=== PATIENT | female | born 1935 | race Caucasian/White ===

== ENCOUNTER 2017-06-06 18:04 | Observation (INO) ==
[~2017-06-06 18:04] MED LIST: Acetaminophen 325 MG TABLET PO PRN
--- NOTE | 2017-06-06 18:12 | Emergency Department Note ---
Disposition Clinical Impression: Gait disturbance Left wrist fracture Qualifiers: Encounter type: initial encounter Fracture type: closed Qualified Code(s): S62.102A - Fracture of unspecified carpal bone, left wrist, initial encounter for closed fracture Dementia Qualifiers: Dementia type: unspecified type Dementia behavioral disturbance: without behavioral disturbance Qualified Code(s): F03.90 - Unspecified dementia without behavioral disturbance Disposition: Admitted As Inpatient Condition: Fair Time of Disposition: 19:45 Fall HPI - General Stated Complaint: Fall Time Seen by Provider: 06/06/17 18:08 Source: patient, EMS Mode of arrival: EMS Limitations: no limitations Nursing Notes Reviewed: Yes Vital Signs Reviewed: Yes - History of Present Illness HPI Narrative: 82-year-old who was walking and fell suffering an injury to her left wrist and left knee. She also struck her head has neck pain. Denies loss of consciousness. Is awake and alert at this point in time. 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 Fall From: standing Fall Witnessed: yes Place Fall Occurred: home Loss of Consciousness: none Prolonged Down Time?: no Symptoms Prior to Fall: none Context: tripped/slipped Location of injury: head, neck Location of injury - extremities: Left: forearm, knee Severity: moderate Quality: aching Associated symptoms (after fall): Reports: headache, neck pain - Related Data Previous Rx's Medication Instructions Recorded Nitrofurantoin (BID) [Macrobid] 100 mg PO BID #20 capsule 07/16/16 Allergies Allergy/AdvReac Type Severity Reaction Status Date / Time No Known Allergies Allergy Verified 07/16/16 20:14 All systems ED: reviewed and negative except as stated. Constitutional: Denies: fever, chills, weakness, weight change Eyes: Denies: eye pain, eye discharge, vision change ENT ED: Denies: ear pain, throat pain, dental pain, hearing loss, epistaxis, congestion, dysphagia Cardiovascular: Denies: chest pain, palpitations, dyspnea on exertion, edema, syncope Respiratory: Denies: cough, dyspnea, wheezes, hemoptysis, stridor Gastrointestinal: Denies: abdominal pain, nausea, vomiting, diarrhea, constipation, hematemesis, melena, hematochezia Genitourinary: Denies: dysuria, frequency, hematuria, discharge Musculoskeletal: Reports: neck pain, arthralgia. Denies: back pain, myalgia Integumentary: Denies: rash, abrasion, lesions Neurological: Reports: headache. Denies: weakness, numbness, paresthesias, confusion, abnormal gait, vertigo Psychiatric: Denies: anxiety, depression, suicidal thoughts, homicidal thoughts , auditory hallucinations, visual hallucinations Endocrine: Denies: fatigue Hematological/Lymphatic: Denies: easy bleeding, easy bruising Allergic/Immunologic: Denies: facial swelling, urticaria Fall PMH - Past Medical History Medical history: Reports: diabetes, renal disease Psychiatric history: Reports: no psych history - Social History Smoking Status: Never smoker Alcohol use: Reports: none Drug use: Reports: none Physical Exam - General Limitations: no limitations General appearance: alert, in no apparent distress - Head Head exam: atraumatic, normocephalic, normal inspection - Eye Eye exam: Present: normal appearance, PERRL, EOMI - ENT ENT exam: normal exam, normal oropharynx, mucous membranes moist - Neck Neck exam: Present: tenderness (Paravertebral) - Chest Chest inspection: Present: normal inspection, symmetric chest wall rise - Respiratory Respiratory exam: Present: normal lung sounds bilaterally - Cardiovascular Cardiovascular exam: Present: regular rate, normal rhythm, normal heart sounds - Abdominal Exam Abdominal exam: Present: soft, Non-Tender. Absent: tenderness, distention, guarding, rebound, rigidity - Expanded Upper Extremity Exam Forearm/Wrist exam: Present: tenderness, swelling - Expanded Lower Extremity Exam Knee exam: Present: tenderness Neurovascular/Tendon exam: Absent: motor deficit, sensory deficit, tendon deficit Gait: observed and normal - Back Exam Back exam: Present: normal inspection, full ROM. Absent: tenderness - Neurological Exam Neurological exam: Present: alert, oriented X3, other (Livingston Coma Scale is 15) . Absent: motor sensory deficit - Psychiatric Psychiatric exam: Present: normal affect, normal mood - Skin Skin exam: Present: warm, dry, intact, normal color Course - Reevaluation(s) Reevaluation #1: 82-year-old female who fell because of tripping who has a left wrist fracture. Patient does have dementia walks with a walker is not able to ambulate broken wrist likely require ECF placement. Time: 19:44 - Consultations Consultation #1: Discussed with Dr. Arellano, will see in consult Time: 19:44 Consultation #2: Discussed with , admit. Time: 19:44 Vital Signs Temperature 98.1 F 06/06/17 18:25 Pulse Rate 71 06/06/17 18:25 Respiratory Rate 16 06/06/17 18:25 Blood Pressure 151/98 06/06/17 18:25 O2 Sat by Pulse Oximetry 96 06/06/17 18:25 Temperature 98.1 F 06/06/17 18:25 Pulse Rate 71 06/06/17 18:25 Respiratory Rate 16 06/06/17 18:25 Blood Pressure 151/98 06/06/17 18:25 O2 Sat by Pulse Oximetry 96 06/06/17 18:25 Oxygen Delivery Oxygen Delivery Nasal Cannula
[2017-06-06 19:49] LABS: Bilirubin,Urine Negative (Negative); Blood,Urine Small (Negative); Clarity,Urine Clear (Clear); Color,Urine Yellow (Yellow); Glucose,Urine (UA) 500 mg/dL (Normal); Ketones,Urine Negative (Negative); Leukocyte Esterase,Urine Negative (Negative); Nitrite,Urine Negative (Negative); PH,Urine 6.5 pH Units (5.0-8.0); Protein,Urine 100 mg/dL (Neg-Trace); Specific Gravity,Urine 1.019 (1.010-1.025); Urobilinogen,Urine Normal (Normal)
[2017-06-06 19:53] LABS: Bacteria,Urine None Seen per hpf (None-Few); Hyaline Casts,Urine None Seen per lpf (None-Few); RBC,Urine 0-3 per hpf (0-3); Squamous Epithelial Cell,Urine Few per lpf (None-Few); WBC,Urine 0-3 per hpf (0-3)
[2017-06-06 20:37] LABS: Basophils % 0.4 %; Eosinophils # 0.2 K/mcL (0.0-0.6); Eosinophils % 3.9 %; Hematocrit 39.8 % (35.3-44.9); Hemoglobin 12.7 g/dL (11.5-15.4); Immature Granulocytes % 0.2 % (0-4); Lymphocytes % 19.9 %; Mean Corpuscular HGB Conc 31.9 g/dL (31.6-35.5); Mean Corpuscular Hemoglobin 32.7 pg (28.0-33.3); Mean Corpuscular Volume 102.6 fL (83.0-100.0); Mean Platelet Volume 10.2 fL (9.4-12.4); Monocytes # 0.3 K/mcL (0.0-1.3); Monocytes % 5.5 %; Neutrophils # 3.6 K/mcL (1.6-8.9); Platelet Count 164 K/mcL (140-400); Red Blood Count 3.88 M/mcL (3.82-4.97); Red Cell Distribution Width 13.7 % (11.5-14.5); Segmented Neutrophils % 70.1 %
[2017-06-06 20:45] LABS: INR 1.2; Prothrombin Time 12.8 Seconds (9.4-12.1)
[2017-06-06 20:52] LABS: Calcium 9.2 mg/dL (8.6-10.3); Potassium 4.9 mEq/L (3.5-5.1)
[2017-06-06] MEDS ORDERED: Naloxone 0.4 MG/ML INJ IVP PRN (23:45)
[2017-06-07] MEDS ORDERED: D5% in Water 1,000 ML IVC PRN (02:42)
[2017-06-07] MEDS ORDERED: Dextrose Gel 15 GM/37.5 ML TUBE PO PRN ×2 (02:42)
[2017-06-07] MEDS ORDERED: *HR* Dextrose 50 % in Water (Syg) 50 ML SYRINGE IVP PRN (02:42)
--- NOTE | 2017-06-07 02:48 | Internal Med History&Physical ---
Date of Encounter: 06/06/17 Time of Encounter: 20:00 Internal Medicine - H&P: HPI Chief complaint: Fall and left wrist pain Admitted From: Home Plans for Post Hospital Care: Transfer Detention Facility History of present illness: Ms. Macias is a 82 year old female present to ER for fall and left wrist pain. past medical history is significant for diabetes, and the hypertension. Patient is said she has a mechanical fall at home today. Patient stated her back of her head with hit but not severe. Patient complaint left wrist pain. And the left the knee pain. Patient denies dizziness, nausea. In the emergency room, CT head negative, left wrist x-ray shows a fracture. Left knee x-ray negative. Patient lives alone and cannot take of herself at home. Patient was admitted for further management. Past Med Surg Social Fam HX - Past Medical History Medical history: diabetes, hypertension, renal disease Psychiatric history: no psych history - Past Surgical History Surgical History: hysterectomy - Social History Smoking Status: Never smoker Smokeless Tobacco Status: No Alcohol use: none Drug use: none - Family History Father Hx Family Cardiac Disorders: Yes ([place]) Internal Medicine - H&P: Meds ALPRAZolam [Xanax 1 MG Tablet] 1 mg PO TID 06/06/17 [History] Diltiazem HCl [Diltiazem ER] 240 mg PO DAILY 06/06/17 [History] Insulin ASPART [Novolog Flexpen] 40 units SQ BID 06/06/17 [History] Insulin Glargine,Hum.rec.anlog [Lantus Solostar] 60 units SQ HS 06/06/17 [ History] Metoprolol Succinate [Toprol Xl] 25 mg PO DAILY 06/06/17 [History] OxyCODONE/APAP 5/325 [Percocet 5/325 MG] 1 - 2 tab PO Q4-6H PRN 06/06/17 [ History] 3 Allergy/AdvReac Type Severity Reaction Status Date / Time No Known Allergies Allergy Verified 06/06/17 20:14 All Systems PM: A 10-system review of systems was performed and is negative for pertinent findings except as documented above in the HPI. - Constitutional Vitals: Temp Pulse Resp BP Pulse Ox 97.8 F 81 18 169/92 90 06/06/17 22:20 06/06/17 22:20 06/06/17 22:20 06/06/17 22:20 06/06/17 22:20 General appearance: Present: A&O X 3, no acute distress, answers questions appropriately - Head Head exam: Present: atraumatic, normocephalic - Eye Eye exam: Present: PERRL, conjuntiva pink, sclera anicteric Pupils: Present: PERRL - Neck Neck exam general surgery: Present: supple, trachea midline. Absent: lymphadenopathy - Respiratory Respiratory exam: Present: CTAB. Absent: accessory muscle use, rales, rhonchi, wheezes - Cardiovascular Cardiovascular exam: Present: RRR, +S1, +S2. Absent: diastolic murmur, gallop, rubs, systolic murmur - GI/Abdominal GI/Abdominal exam: Present: normal bowel sounds, soft, no peritoneal signs. Absent: distended, tenderness - Extremities Exam Extremities exam: Present: warm, radial pulses palpable and symmetrical. Absent : calf tenderness, cyanotic, pedal edema Additional comments: Left-sided wrist fracture, splint placed by ER - Neurological Exam Neurological exam: Present: CN II-XII intact, oriented X3, no focal deficits. Absent: pronater drift, facial droop, speech deficit - Skin Skin exam: Present: dry, intact Internal Med - H&P Results - Labs CBC & Chem 7: 06/06/17 20:23 06/06/17 20:23 - Assessment and plan (1) Fall Current Visit: Yes Status: Acute Assessment and plan: Patient has a mechanical fall. Patient is aged with decreased capacity to of activity. - PTOT evaluation - logging worker consult for placement Qualifiers: Encounter type: initial encounter Qualified Code(s): W19.XXXA - Unspecified fall, initial encounter (2) Diabetes Current Visit: Yes Status: Acute Assessment and plan: We will place patient on basal and sliding scale insulin coverage. Monitor glucose and adjust dose of insulin per glucose level. Qualifiers: Diabetes mellitus type: type 2 Diabetes mellitus retirement insulin use: with terminal worker use Diabetes mellitus complication status: with kidney complications Diabetes mellitus complication detail: with chronic kidney disease Chronic kidney disease stage: stage 3 (moderate) Qualified Code(s): E11.22 - Type 2 diabetes mellitus with diabetic chronic kidney disease; N18.3 - Chronic kidney disease, stage 3 (moderate); N18.3 - Chronic kidney disease, stage 3 (moderate); Z79.4 - MCFP (current) use of insulin; Z79.4 - terminal manager (current) use of insulin; Z79.4 - MCFP (current) use of insulin; Z79.4 - terminal manager (current) use of insulin (3) Hypertension Current Visit: Yes Status: Acute Assessment and plan: Continue home medications. Closely monitor PT Qualifiers: Hypertension type: essential hypertension Qualified Code(s): I10 - Essential (primary) hypertension (4) DVT prophylaxis Current Visit: Yes Status: Acute Assessment and plan: Heparin subcutaneously (5) Left wrist fracture Current Visit: Yes Status: Acute Assessment and plan: Splint placed by ER already. Orthopedic consult. Qualifiers: Encounter type: initial encounter Fracture type: closed Qualified Code(s) : S62.102A - Fracture of unspecified carpal bone, left wrist, initial encounter for closed fracture (6) CKD (chronic kidney disease) Current Visit: Yes Status: Acute Assessment and plan: Creatinine level is at baseline. Avoid the nephrotoxic medications Qualifiers: Chronic kidney disease stage: stage 3 (moderate) Qualified Code(s): N18.3 - Chronic kidney disease, stage 3 (moderate) - Time Spent With Patient Total time spent is greater than 50% in coordination of care (as documented) at patient's floor/unit and/or counseling patient: 40 minutes Greater than 35 minutes
[2017-06-07] MEDS: *HR* OxyCODONE/APAP 5/325 TABLET PO PRN (05:58)
[2017-06-07] MEDS: *HR* Heparin 5,000 UNIT/ML VIAL SQ SCH ×2 (06:03→18:05)
[2017-06-07] MEDS: Metoprolol XL (24 HR) Succ 25 MG TAB.ER.24H PO SCH (08:22)
[2017-06-07] MEDS: Diltiazem CD (24hr) 240 MG CAPSULE PO SCH (08:22)
[2017-06-07] MEDS: ALPRAZolam 1 MG TABLET PO SCH ×3 (08:22→21:19)
[2017-06-07] MEDS: Insulin LISPRO 300 UNITS/3 ML VIAL SQ SCH ×3 (08:22→18:05)
--- NOTE | 2017-06-07 13:27 | Orthopedic Consult Note ---
Date of Encounter: 06/07/17 Time of Encounter: 12:30 Assessment and Plan (1) Left wrist fracture Current Visit: Yes Status: Acute Left distal radius fracture Reviewed xrays with Dr. Arellano who recommends nonoperative treatment at this time. ER did apply volar wrist splint which nursing states she has removed this multiple times. Will send someone from office to apply sugar tong splint. Do not remove splint until follow up in the office. She is to be NWB to LUE. Work on ROM of fingers only, no wrist motion. Patient states she uses a walker at home. Can consider platform attachment but daughter is insistent on ECF. Will have social work discuss options with patient and family. PT/OT will assess. Will follow up with Dr. Arellano in [facility] office in 1 week for reevaluation. Orthopedics will sign off at this time but please call for any questions. Qualifiers: Encounter type: initial encounter Fracture type: closed Qualified Code(s) : S62.102A - Fracture of unspecified carpal bone, left wrist, initial encounter for closed fracture History of Present Illness Chief complaint: left wrist pain HPI: Ms. Macias is a 82 year old female who states she fell at home last night, FOOSH injury. States she falls a lot due to knees weak/giving out with a previous fall just 6 days ago with no known injury from that. Pain is well controlled right now but described as constant aching, localized to the wrist with no radiation up arm or into hand. Denies any numbness or tingling to LUE. States she did hit her head but denies LOC. Denies chest pain, SOB, fevers. She is right hand dominant. She lives at home alone and states she normally ambulates well with a walker. Past Med Surg Social Fam HX - Past Medical History Medical history: diabetes, hypertension, renal disease Psychiatric history: no psych history - Past Surgical History Surgical History: hysterectomy - Social History Smoking Status: Never smoker Smokeless Tobacco Status: No Alcohol use: none Drug use: none - Family History Father Hx Family Cardiac Disorders: Yes ([place]) Medications and Allergies ALPRAZolam [Xanax 1 MG Tablet] 1 mg PO TID 06/06/17 [History] Diltiazem HCl [Diltiazem ER] 240 mg PO DAILY 06/06/17 [History] Insulin ASPART [Novolog Flexpen] 40 units SQ BID 06/06/17 [History] Insulin Glargine,Hum.rec.anlog [Lantus Solostar] 60 units SQ HS 06/06/17 [ History] Metoprolol Succinate [Toprol Xl] 25 mg PO DAILY 06/06/17 [History] OxyCODONE/APAP 5/325 [Percocet 5/325 MG] 1 - 2 tab PO Q4-6H PRN 06/06/17 [ History] 3 Allergy/AdvReac Type Severity Reaction Status Date / Time No Known Allergies Allergy Verified 06/06/17 20:14 All Systems Reviewed: The remainder of the systems were reviewed and are negative - Constitutional Constitutional: as per HPI - Cardiovascular Cardiovascular: as per HPI - Respiratory Respiratory: as per HPI - Musculoskeletal Musculoskeletal: as per HPI Physical Exam - Constitutional Vitals: Temp Pulse Resp BP Pulse Ox 97.8 F 79 16 146/84 94 06/07/17 11:43 06/07/17 11:43 06/07/17 11:43 06/07/17 11:43 06/07/17 11:43 - Wrist & Hand left Wrist pain modifiers: with motion (short volar splint intact to left wrist but is positioned to ends of fingers with thumb enclosed. minimal AROM of fingers due to splint. brisk cap refill. grossly NV intact. ) Results - Labs Result Diagrams: 06/06/17 20:23 06/06/17 20:23 Labs: Abnormal lab results MCV 102.6 fL (83.0-100.0) H 06/06/17 20:23 PT 12.8 Seconds (9.4-12.1) H 06/06/17 20:23 Carbon Dioxide 30 mEq/L (23-29) H 06/06/17 20:23 BUN 28 mg/dL (8-23) H 06/06/17 20:23 Creatinine 1.56 mg/dL (0.60-1.20) H 06/06/17 20:23 Est GFR ( Amer) 39 (> 60) L 06/06/17 20:23 Est GFR (Non-Af Amer) 32 (> 60) L 06/06/17 20:23 Glucose 284 mg/dL (70-105) H 06/06/17 20:23 Urine Protein 100 mg/dL (Neg-Trace) H 06/06/17 18:25 Urine Glucose (UA) 500 mg/dL (Normal) H 06/06/17 18:25 Urine Blood Small (Negative) H 06/06/17 18:25 All other labs normal. - Diagnostic results Wrist/Hand x-ray: report reviewed (Stable alignment of a nondisplaced distal radial fracture with subtle increased sclerosis. No significant callus formation ), image reviewed Consult Discharge Plan - Plan Referrals: Johnson Lee DO [Primary Care Provider] - - Attending Attestation Case and plan of care discussed with supervising physician who was available for all aspects of care.
--- NOTE | 2017-06-07 13:39 | Internal Med Progress Note ---
Date of Encounter: 06/07/17 Time of Encounter: 10:50 - Assessment and plan (1) Left wrist fracture Current Visit: Yes Status: Acute Assessment and plan: Orthopedics consulted. Follow recommendations. Pain control. Supportive care and physical therapy. Moderate risk for complications. Qualifiers: Encounter type: initial encounter Fracture type: closed Qualified Code(s) : S62.102A - Fracture of unspecified carpal bone, left wrist, initial encounter for closed fracture (2) Fall Current Visit: Yes Status: Acute Assessment and plan: Mechanical fall. Awaiting PT OT evaluation. Qualifiers: Encounter type: initial encounter Qualified Code(s): W19.XXXA - Unspecified fall, initial encounter (3) Diabetes Current Visit: Yes Status: Chronic Assessment and plan: Blood sugar slightly elevated at this time. Continue diabetic diet. We will increase insulin regimen if they remain persistently elevated. Qualifiers: Diabetes mellitus type: type 2 Diabetes mellitus usp insulin use: with usp use Diabetes mellitus complication status: with kidney complications Diabetes mellitus complication detail: with chronic kidney disease Chronic kidney disease stage: stage 3 (moderate) Qualified Code(s): E11.22 - Type 2 diabetes mellitus with diabetic chronic kidney disease; N18.3 - Chronic kidney disease, stage 3 (moderate); N18.3 - Chronic kidney disease, stage 3 (moderate); Z79.4 - correction (current) use of insulin; Z79.4 - electric range assembler (current) use of insulin; Z79.4 - correction (current) use of insulin; Z79.4 - electric range assembler (current) use of insulin (4) Hypertension Current Visit: Yes Status: Chronic Assessment and plan: Blood pressure is elevated this morning. On Cardizem and metoprolol. Will monitor blood pressure. Adjust antihypertensive regimen according to blood pressure Qualifiers: Hypertension type: essential hypertension Qualified Code(s): I10 - Essential (primary) hypertension (5) CKD (chronic kidney disease) Current Visit: Yes Status: Chronic Assessment and plan: Creatinine at baseline. Qualifiers: Chronic kidney disease stage: stage 3 (moderate) Qualified Code(s): N18.3 - Chronic kidney disease, stage 3 (moderate) (6) DVT prophylaxis Current Visit: Yes Status: Acute Assessment and plan: On subcutaneous heparin - Time Spent With Patient Total time spent is greater than 50% in coordination of care (as documented) at patient's floor/unit and/or counseling patient: - Subjective Interval history: Patient is lying in bed. Comfortable. Pain is well controlled in left upper extremity. Denies any dizziness or lightheadedness. No chest pain or palpitations. - Constitutional Vitals: Temp Pulse Resp BP Pulse Ox 97.8 F 79 16 146/84 94 06/07/17 11:43 06/07/17 11:43 06/07/17 11:43 06/07/17 11:43 06/07/17 11:43 General appearance: Present: A&O X 3, no acute distress, answers questions appropriately - Neck Neck exam general surgery: Present: supple, trachea midline. Absent: lymphadenopathy - Respiratory Respiratory exam: Present: CTAB. Absent: accessory muscle use, rales, rhonchi, wheezes - Cardiovascular Cardiovascular exam: Present: RRR, +S1, +S2. Absent: diastolic murmur, gallop, rubs, systolic murmur - GI/Abdominal GI/Abdominal exam: Present: normal bowel sounds, soft, no peritoneal signs. Absent: distended, tenderness - Extremities Exam Extremities exam: Present: tenderness (Left forearm and wrist in splint.), warm , radial pulses palpable and symmetrical. Absent: calf tenderness, cyanotic, pedal edema - Neurological Exam Neurological exam: Present: CN II-XII intact, oriented X3, no focal deficits. Absent: facial droop, speech deficit - Skin Skin exam: Present: dry, intact Internal Medicine: Result - Labs CBC & Chem 7: 06/06/17 20:23 06/06/17 20:23 - ABG Interpretation ABG results: PT/INR, D-dimer PT 12.8 Seconds (9.4-12.1) H 06/06/17 20:23 - Impressions Impressions Wrist X-Ray 06/07/17 08:28 IMPRESSION: Stable alignment of a nondisplaced distal radial fracture with subtle increased sclerosis. No significant callus formation. D/ / 06/07/2017 09:12:21 Karen Melendez MD / [email or web address] Interpreting Provider: Karen Melendez MD Consult Discharge Plan - Plan Referrals: Johnson Lee DO [Primary Care Provider] -
[2017-06-07] MEDS ORDERED: Insulin LISPRO 300 UNITS/3 ML VIAL SQ SCH (21:00)
[2017-06-07] MEDS: Insulin DETEMIR 100 UNIT/ML X5UNITS SQ SCH (21:19)
[2017-06-08 01:25] LABS: Basophils % 0.3 %; Eosinophils # 0.1 K/mcL (0.0-0.6); Hematocrit 36.6 % (35.3-44.9); Hemoglobin 11.8 g/dL (11.5-15.4); Immature Granulocytes % 0.3 % (0-4); Lymphocytes # 1.1 K/mcL (0.6-4.6); Lymphocytes % 15.2 %; Mean Corpuscular HGB Conc 32.2 g/dL (31.6-35.5); Mean Corpuscular Hemoglobin 32.3 pg (28.0-33.3); Mean Corpuscular Volume 100.3 fL (83.0-100.0); Mean Platelet Volume 10.3 fL (9.4-12.4); Monocytes # 0.5 K/mcL (0.0-1.3); Neutrophils # 5.3 K/mcL (1.6-8.9); Platelet Count 162 K/mcL (140-400); Red Blood Count 3.65 M/mcL (3.82-4.97); Red Cell Distribution Width 13.6 % (11.5-14.5); Segmented Neutrophils % 76.2 %
[2017-06-08 01:41] LABS: Calcium 8.9 mg/dL (8.6-10.3); Potassium 4.5 mEq/L (3.5-5.1)
[2017-06-08] MEDS: *HR* Heparin 5,000 UNIT/ML VIAL SQ SCH ×2 (06:05→16:43)
[2017-06-08] MEDS: ALPRAZolam 1 MG TABLET PO SCH ×3 (08:12→21:25)
[2017-06-08] MEDS: Metoprolol XL (24 HR) Succ 25 MG TAB.ER.24H PO SCH (08:12)
[2017-06-08] MEDS: *HR* OxyCODONE/APAP 5/325 TABLET PO PRN ×2 (08:12→16:44)
[2017-06-08] MEDS: Diltiazem CD (24hr) 240 MG CAPSULE PO SCH (08:12)
[2017-06-08] MEDS: Insulin LISPRO 300 UNITS/3 ML VIAL SQ SCH ×3 (08:12→16:41)
--- NOTE | 2017-06-08 15:48 | Internal Med Progress Note ---
Date of Encounter: 06/08/17 Time of Encounter: 09:15 - Assessment and plan (1) Left wrist fracture Current Visit: Yes Status: Acute Assessment and plan: Conservative management per orthopedics. Awaiting placement to skilled rehabilitation. Continue PT and OT. Pain control. Splint to upper extremity. Qualifiers: Encounter type: initial encounter Fracture type: closed Qualified Code(s) : S62.102A - Fracture of unspecified carpal bone, left wrist, initial encounter for closed fracture (2) Fall Current Visit: Yes Status: Acute Assessment and plan: PT/OT to recommended placement to skilled rehabilitation. rubber worker making arrangements for this Qualifiers: Encounter type: initial encounter Qualified Code(s): W19.XXXA - Unspecified fall, initial encounter (3) Diabetes Current Visit: Yes Status: Chronic Assessment and plan: Blood sugars ranging in the 200s. We will increase sliding scale coverage. Continue diabetic diet. Monitor blood sugars closely. Qualifiers: Diabetes mellitus type: type 2 Diabetes mellitus mcfp insulin use: with termite treater use Diabetes mellitus complication status: with kidney complications Diabetes mellitus complication detail: with chronic kidney disease Chronic kidney disease stage: stage 3 (moderate) Qualified Code(s): E11.22 - Type 2 diabetes mellitus with diabetic chronic kidney disease; N18.3 - Chronic kidney disease, stage 3 (moderate); N18.3 - Chronic kidney disease, stage 3 (moderate); Z79.4 - terminal block assembler (current) use of insulin; Z79.4 - terminal block assembler (current) use of insulin; Z79.4 - terminal block assembler (current) use of insulin; Z79.4 - terminal block assembler (current) use of insulin (4) Hypertension Current Visit: Yes Status: Chronic Assessment and plan: Fairly controlled. Continue metoprolol and Cardizem Qualifiers: Hypertension type: essential hypertension Qualified Code(s): I10 - Essential (primary) hypertension (5) CKD (chronic kidney disease) Current Visit: Yes Status: Chronic Assessment and plan: renal function is stable. Qualifiers: Chronic kidney disease stage: stage 3 (moderate) Qualified Code(s): N18.3 - Chronic kidney disease, stage 3 (moderate) (6) DVT prophylaxis Current Visit: Yes Status: Acute Assessment and plan: Continue subcutaneous heparin - Time Spent With Patient Total time spent is greater than 50% in coordination of care (as documented) at patient's floor/unit and/or counseling patient: - Subjective Interval history: Patient is awake and alert. Comfortable. Pain well controlled in left upper extremity. No other complaints at this time - Constitutional Vitals: Temp Pulse Resp BP Pulse Ox 98.3 F 73 16 144/76 94 06/08/17 15:39 06/08/17 15:39 06/08/17 15:39 06/08/17 15:39 06/08/17 15:39 General appearance: Present: A&O X 3, no acute distress, answers questions appropriately - Eye Eye exam: Present: PERRL, conjuntiva pink, sclera anicteric - Neck Neck exam general surgery: Present: supple, trachea midline. Absent: lymphadenopathy - Respiratory Respiratory exam: Present: CTAB. Absent: accessory muscle use, rales, rhonchi, wheezes - Cardiovascular Cardiovascular exam: Present: RRR, +S1, +S2. Absent: diastolic murmur, gallop, rubs, systolic murmur - GI/Abdominal GI/Abdominal exam: Present: normal bowel sounds, soft, no peritoneal signs. Absent: distended, tenderness - Extremities Exam Extremities exam: Present: warm, radial pulses palpable and symmetrical. Absent : calf tenderness, cyanotic, pedal edema Additional comments: Left upper extremity in splint - Neurological Exam Neurological exam: Present: alert, oriented X3, no focal deficits. Absent: facial droop, speech deficit - Skin Skin exam: Present: dry, intact Internal Medicine: Result - Labs CBC & Chem 7: 06/08/17 00:49 06/08/17 00:49 Labs: Short CBC 06/08/17 Range/Units 00:49 WBC 7.0 (4.3-11.1) K/mcL Hgb 11.8 (11.5-15.4) g/dL Hct 36.6 (35.3-44.9) % Plt Count 162 (140-400) K/mcL Neutrophils # 5.3 (1.6-8.9) K/mcL BMP 06/08/17 00:49 Sodium 133 L Potassium 4.5 Chloride 102 Carbon Dioxide 26 BUN 23 Creatinine 1.52 H Glucose 223 H Calcium 8.9 - ABG Interpretation ABG results: PT/INR, D-dimer PT 12.8 Seconds (9.4-12.1) H 04/17/18 20:23 Consult Discharge Plan - Plan Referrals: Johnson Lee DO [Primary Care Provider] -
[2017-06-08] MEDS ORDERED: Insulin LISPRO 300 UNITS/3 ML VIAL SQ SCH (21:00)
[2017-06-08] MEDS: Insulin DETEMIR 100 UNIT/ML X5UNITS SQ SCH (21:24)
[2017-06-09] MEDS: *HR* Heparin 5,000 UNIT/ML VIAL SQ SCH (06:42)
[2017-06-09] MEDS: ALPRAZolam 1 MG TABLET PO SCH ×2 (08:12→14:55)
[2017-06-09] MEDS: Insulin LISPRO 300 UNITS/3 ML VIAL SQ SCH ×2 (08:13→11:55)
[2017-06-09] MEDS: Diltiazem CD (24hr) 240 MG CAPSULE PO SCH (08:13)
[2017-06-09] MEDS: Metoprolol XL (24 HR) Succ 25 MG TAB.ER.24H PO SCH (08:13)
--- NOTE | 2017-06-09 11:11 | Discharge Summary ---
- NOTES TO OUTPATIENT PROVIDER Notes to Outpatient Provider: Patient admitted here after a fall with resulting fracture of left radius. This was nondisplaced and splinted in ER. Evaluated by orthopedics and recommended conservative management. Patient will follow up with orthopedics in 1 week. Will be discharged to skilled rehabilitation for recovery. 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 insulin use: with halfway use Diabetes mellitus complication status: with kidney complications Diabetes mellitus complication detail: with chronic kidney disease Chronic kidney disease stage: stage 3 (moderate) Qualified Code(s): E11.22 - Type 2 diabetes mellitus with diabetic chronic kidney disease; N18.3 - Chronic kidney disease, stage 3 (moderate); N18.3 - Chronic kidney disease, stage 3 (moderate); Z79.4 - FDC (current) use of insulin; Z79.4 - FDC (current) use of insulin; 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 Macias is a 82 year old female patient with history of dementia, atrial fibrillation, hypertension, chronic kidney disease, diabetes who was hospitalized here with a fall resulting in left wrist fracture. She had a splint placed in the ER. Orthopedics was consulted. They recommended conservative management and follow-up outpatient in 1 week for reevaluation. Patient was evaluated by physical therapy and recommended placement to skilled rehabilitation as she is unable to take care of herself at home due to this fracture and underlying dementia. As such nursing home social worker was consulted and patient will be discharged to skilled rehabilitation when a bed is available for her. Discharge discussed with: patient, family, nurse - Time Spent with Patient Total time spent providing and/or coordinating discharge services: Greater than 30 minutes (32 min) - Discharge Medications Prescriptions: ALPRAZolam [Xanax 1 MG Tablet] 1 mg PO TID 5 Days #15 tablet OxyCODONE/APAP 5/325 [Percocet 5/325 MG] 1 - 2 tab PO Q4-6H PRN 5 Days #20 tablet PRN Reason: Moderate Pain Home Medications: Diltiazem HCl [Diltiazem ER] 240 mg PO DAILY 06/06/17 [History] Insulin ASPART [Novolog Flexpen] 40 units SQ BID 06/06/17 [History] Insulin Glargine,Hum.rec.anlog [Lantus Solostar] 60 units SQ HS 06/06/17 [ History] Metoprolol Succinate [Toprol Xl] 25 mg PO DAILY 06/06/17 [History] ALPRAZolam [Xanax 1 MG Tablet] 1 mg PO TID 5 Days #15 tablet 06/09/17 [Rx] Acetaminophen [Tylenol] 650 mg PO Q6HR PRN tablet 06/09/17 [Rx] OxyCODONE/APAP 5/325 [Percocet 5/325 MG] 1 - 2 tab PO Q4-6H PRN 5 Days #20 tablet 06/09/17 [Rx] Allergies/Adverse Reactions: 3 Allergy/AdvReac Type Severity Reaction Status Date / Time No Known Allergies Allergy Verified 06/06/17 20:14 Date of admission: 06/06/17 21:32 Primary care physician: Reyes Rhodes Consults: 06/06/17 23:48 Consult to Occupational Therapy [CONS] Routine Comment: Evaluate, develop and implement POC Reason for Consult: Weakness, fall Does patient have active BEDREST order?: No Is patient medically & hemodynamically stable?: Yes Consult to Physical Therapy [CONS] Routine Comment: Evaluate, develop and implement POC Reason for Consult: Fall Does patient have active BEDREST order?: No Is patient medically & hemodynamically stable?: Yes Consult to Unemployment Insurance Hearing Officer [CONS] Routine Reason for SW Consult: may need placement Discharging clinician: Harman Galeas Anticipated date of discharge: 06/09/17 - Constitutional Vitals: Temp Pulse Resp BP Pulse Ox 97.4 F L 85 18 172/82 93 06/09/17 06:55 06/09/17 06:55 06/09/17 06:55 06/09/17 06:55 06/09/17 06:55 General appearance: Present: A&O X 3, no acute distress, answers questions appropriately - Respiratory Respiratory exam: Present: CTAB. Absent: accessory muscle use, rales, rhonchi, wheezes - Cardiovascular Cardiovascular exam: Present: RRR, +S1, +S2. Absent: diastolic murmur, gallop, rubs, systolic murmur - GI/Abdominal GI/Abdominal exam: Present: normal bowel sounds, soft, no peritoneal signs. Absent: distended, tenderness - Extremities Exam Extremities exam: Present: warm, radial pulses palpable and symmetrical. Absent : calf tenderness, cyanotic, pedal edema - Neurological Exam Neurological exam: Present: alert, oriented X3, no focal deficits. Absent: facial droop, speech deficit - Patient Status Disposition: Transfer SNF Condition: Fair Functional capacity at discharge: wheelchair bound Overall status at discharge: patient is progressing back to baseline - Discharge Instructions Instructions: Diabetes Mellitus Type 2 in Adults (DC), Chronic Hypertension (DC ) Follow Up With: Cali Arellano MD [Partnered Physician] - 06/14/17 11:20 am Johnson Lee DO [Primary Care Provider] - 06/22/17 12:00 pm () Forms: ED Satisfaction Letter - Diet and Activity Activity: as per physical therapy, increase activity as tolerated Diet: diabetic diet, low salt diet
--- NOTE | 2017-06-09 11:29 | Physician Discharge Referral ---
[facility] Referral Info Transfer To: [place] Provider in Charge after Transfer: PCP Institutional Level of Care: Skilled - Diagnosis (1) Left wrist fracture Priority: Primary Status: Acute (2) Fall Priority: Secondary Status: Acute (3) Diabetes Priority: Secondary Status: Chronic (4) Hypertension Priority: Secondary Status: Chronic (5) CKD (chronic kidney disease) Priority: Secondary Status: Chronic (6) DVT prophylaxis Priority: Secondary Status: Acute Prognosis: Fair Aware of Diagnosis: Patient, Family Aware of Prognosis: Patient, Family - Transfer Medications Prescriptions: ALPRAZolam [Xanax 1 MG Tablet] 1 mg PO TID 5 Days #15 tablet OxyCODONE/APAP 5/325 [Percocet 5/325 MG] 1 - 2 tab PO Q4-6H PRN 5 Days #20 tablet PRN Reason: Moderate Pain Home Medications: Diltiazem HCl [Diltiazem ER] 240 mg PO DAILY 06/06/17 [History] Insulin ASPART [Novolog Flexpen] 40 units SQ BID 06/06/17 [History] Insulin Glargine,Hum.rec.anlog [Lantus Solostar] 60 units SQ HS 06/06/17 [ History] Metoprolol Succinate [Toprol Xl] 25 mg PO DAILY 06/06/17 [History] ALPRAZolam [Xanax 1 MG Tablet] 1 mg PO TID 5 Days #15 tablet 06/09/17 [Rx] Acetaminophen [Tylenol] 650 mg PO Q6HR PRN tablet 06/09/17 [Rx] OxyCODONE/APAP 5/325 [Percocet 5/325 MG] 1 - 2 tab PO Q4-6H PRN 5 Days #20 tablet 06/09/17 [Rx] Allergies/Adverse Reactions: 3 Allergy/AdvReac Type Severity Reaction Status Date / Time No Known Allergies Allergy Verified 06/06/17 20:14 - Respiratory Orders Smoking Cessation: Smoking cessation has been advised. For more information, call the [employer] Tobacco Quit Line at 1-315-ZMEV-NOW. - Ancillary Orders May consult with Dentist, Credit Administration Specialist, Temporary Data Entry Clerk PRN - Advance Directives Code Status: Full Code - Mobility Orders Other (per PT) - Rehabiliation Orders Rehab Potential: Fair Rehab Orders: Evaluation for Physical Therapy, Evaluation for Occupational Therapy - Diet Orders Cardiac CERTIFICATION: I certify that the transfer of the above named patient to an [facility] Facility is necessary for the continuing treatment of the diagnosis listed. The above information is true and accurate reflection of patient's current condition. Confidential - Redisclosure prohibited without a patient's written consent.
[2017-06-09 11:49] VITALS: BP 112/68
== END 2017-06-09 14:58 ==
LOC: 3NENU 18:04 → EMEROO 18:04 → 3NENU 22:08 → SUATTDRO 23:45
PROVIDERS: ADMIT Internal Medicine; ATTEND Internal Medicine